=== PATIENT | male | born 1955 | race Caucasian/White ===

== ENCOUNTER → 2023-01-24 14:40 | Outpatient (BNV) | payer OTHER, SELFPAY | PROVIDERS: PCP Nurse Practitioner Family; Visit Provider Internal Medicine | DX: C64.9 Malignant neoplasm of unspecified kidney, except renal pelvis (principal) | CPT/HCPCS: 99213; 99214; 99215; G2211 ==

== ENCOUNTER 2023-02-02 10:04 | Day surgery (SDC) | payer OTHER, SELFPAY ==
--- NOTE | ~2023-02-02 | CT_ITS ---
PROCEDURE: CT GUIDED BIOPSY, BONE CLINICAL INFORMATION: Mass in the anterior chest wall along the left lateral aspect of the upper manubrium along the inferior aspect to the left first rib COMPARISON: Previous CT scan dated 01/26/2023 at an outside institution TECHNIQUE: The skin was prepped and draped in usual fashion. After preliminary scans of the chest the mass was localized. 1% Xylocaine was used for local anesthetic. A 18-gauge by 11 cm Temno core biopsy needle was then placed under CT guidance. The position of the needle was confirmed and 4 core biopsy specimens were obtained. The specimens were placed in formalin solution. The needle was removed and manual pressure applied. CT/CT biopsy bone deep IMPRESSION: CT-guided biopsy of the mass along the left lateral aspect of the manubrium adjacent to the anterior aspect of the left first rib.
[2023-02-02 10:37] LABS: INTERNATIONAL NORM RATIO 1.1 (0.9-1.1); Prothrombin Time 13.4 SEC (11.1-13.3)
[2023-02-02 10:40] LABS: Partial Thromboplastin Time 32.8 SEC (26.0-36.4)
[2023-02-02 10:47] VITALS: BMI 29.3
[2023-02-02 12:50] VITALS: BP 144/69; PULSE 53; RESP 16; TEMP 36.4; O2SAT 95
[2023-02-02] MEDS: Lidocaine HCl 1 % 20 ML VIAL 10 ML SUBCUT (13:00)
[2023-02-02 13:05] VITALS: BP 146/64; PULSE 54; RESP 16; O2SAT 97
[2023-02-02 13:20] VITALS: BP 155/73; PULSE 55; RESP 16; O2SAT 97
[2023-02-02 13:35] VITALS: BP 149/64; PULSE 54; RESP 16; O2SAT 97
[2023-02-02 13:47] VITALS: BP 154/70; PULSE 56; RESP 16; TEMP 36.6; O2SAT 97
== END 2023-02-02 14:19 | disposition home or self-care (01) ==
PROVIDERS: Radiology Vascular & Interventional Radiology; PCP Nurse Practitioner Family; Visit Provider Internal Medicine
DX: C79.51 Secondary malignant neoplasm of bone (principal); C64.9 Malignant neoplasm of unspecified kidney, except renal pelvis; R53.1 Weakness; R91.8 Other nonspecific abnormal finding of lung field; R42 Dizziness and giddiness; I25.2 Old myocardial infarction; I25.10 Atherosclerotic heart disease of native coronary artery without angina pectoris; Z95.5 Presence of coronary angioplasty implant and graft; I10 Essential (primary) hypertension; Z79.82 Long term (current) use of aspirin; Z79.899 Other long term (current) drug therapy; Z86.73 Personal history of transient ischemic attack (TIA), and cerebral infarction without residual deficits; Z88.6 Allergy status to analgesic agent
CPT/HCPCS: 20225; 36415; 77012; 85610; 85730; 88307; 88311; 88341; 88342; 99152; J2250; J3010

== ENCOUNTER → 2023-02-02 12:08 | Outpatient (BNV) | payer OTHER, SELFPAY | PROVIDERS: PCP Nurse Practitioner Family; Visit Provider Radiology Vascular & Interventional Radiology | DX: C64.9 Malignant neoplasm of unspecified kidney, except renal pelvis (principal) | CPT/HCPCS: 20225; 77012 ==

== ENCOUNTER 2023-05-29 13:55 | Outpatient (REF) | payer OTHER, SELFPAY ==
--- NOTE | ~2023-05-29 | XR_ITS ---
EXAMINATION: XR HIP, LEFT CLINICAL INFORMATION: Question stability. COMPARISON: None available. TECHNIQUE: Two views of the left hip. Single view of the pelvis FINDINGS: No acute visible fracture or dislocation. Degenerative changes of the bilateral femoral acetabular joints. Degenerative arthropathy of the lumbosacral spine. Joint space alignment are otherwise maintained. Soft tissues are unremarkable. Atherosclerotic calcifications are noted. Surgical clips overlying the scrotum. XR/XR hip LT w PEL1V IMPRESSION: 1. No acute visible fracture or dislocation. 2. Degenerative changes of the bilateral femoral acetabular joints.
== END 2023-05-29 13:56 | disposition home or self-care (01) ==
LOC: HO.XRAY 13:55
PROVIDERS: PCP Nurse Practitioner Family; Visit Provider Internal Medicine
DX: C64.9 Malignant neoplasm of unspecified kidney, except renal pelvis (principal); C79.51 Secondary malignant neoplasm of bone
CPT/HCPCS: 73502

== ENCOUNTER 2023-06-08 10:28 | Outpatient (AMB) | payer OTHER, SELFPAY ==
--- NOTE | 2023-06-08 10:36 | MHC.OFFVIS ---
Intake Vital Signs 06/08/23 10:38 Height 5 ft 10 in Weight 190 lb BMI 27.3 BP 140/66 H Blood Pressure Location Lt brachial Position Sitting Pulse 56 Intake Visit Reasons: Esophageal mass Intake Note: Patient new consult for Esophageal mass. Patient denies any GI issues. Ditcher Required: No Accompanied by: Spouse Allergies morphine Allergy (Severe, Verified 06/08/23 10:36) Unknown Medication List - Last Reconciled 06/08/23 by Nilda Qureshi MD amiodarone 200 mg PO DAILY amlodipine 10 mg PO DAILY aspirin 81 mg PO DAILY atorvastatin 80 mg PO BEDTIME carvedilol 25 mg PO BID lenvatinib 20 mg PO DAILY levothyroxine (Synthroid) 25 mcg PO DAILY prochlorperazine maleate 10 mg PO Q6H PRN valsartan 80 mg PO DAILY HPI Esophageal mass HPI Details Initial GI clinic visit for this 67 [address] Solis for evaluation of a persistent esophageal mass LABS IN [facility] : Reviewed IMAGING STUDIES: 05/23/[address] scan report was reviewed: howed interval decrease in activity and size of previously visualized pulmonary masses, resolution of a few of previously seen nodules. Intensely avid osseous lesions at the left 1st rib, manubrium and left femur similar to prior. No significant change in intensely avid lesion involving distal esophagus and gastric cardia. ENDOSCOPIC STUDIES: None in [facility] TODAY'S VISIT: Patient denies symptoms of heartburn, dysphagia, nausea, vomiting, change in appetite. Notes an increase in his wt by a few lbs since he is not getting a lot of exercise Denies recent change in bowel habits, constipation, diarrhea, black stools or rectal bleeding. Patient has CAD and had an angiography with placement of 2 stents in 05/2022 Pt denies a hx of loud snoring or sleep apnea Denies problems with anesthesia in the past. Pt denies smoking and takes a beer every day Denies being on chronic anticoagulation. Patient denies known family history of colon polyps, colon cancer or other GI malignancies. Sister of lung cancer from smoking Pt worked at [employer] and is retired and lives with his . Pt has 3 kids and 2 GD PAST EGD/COLONOSCOPY: Never had an EGD or a colonoscopy in the past PAST GI HISTORY BY REVIEW OF MEDICAL RECORDS: Diagnosis: Metastatic kidney cancer He has a complicated past medical history. He initially suffered a CVA in 2014 for which he was treated in [place]. In 2019 he had defibrillator placed at [facility] he is rather vague about the circumstances around this. In May 2022 he had stent placement for coronary artery disease and he was started on anti-platelet therapy. In June 2022 he was admitted to [facility] for hypertensive emergency. During that time he was told of a right kidney mass. He underwent CT abdomen/pelvis with IV contrast at [facility] on 12/07/2022 which revealed a large heterogenous mass in lower pole of right kidney measuring 8.8 cm, highly suspicious for renal cell carcinoma. Second enhancing lesion at upper pole of right kidney measuring up to 2.2 cm consistent with local metastatic disease. 1.6 cm indeterminate right adrenal lesion. Multiple subcentimeter hypodensities in the liver that are too small to characterize. 2.3 cm hypodensity within the pancreatic head which could represent metastatic disease versus a 2nd primary. Multiple pulmonary nodules measuring up to 1 cm most consistent with metastatic disease, recommend CT chest with contrast for further evaluation. He is followed by Dr. Whittington at [facility]. PET-CT performed at [facility] on 01/19/2023 revealed multiple pulmonary nodules with FDG avidity, heterogenous mass at right lower renal bone measuring 8.5 cm with SUV 10.4 in a separate nodule from the upper pole of the right kidney also hypermetabolic with SUV 8.3 and measuring 3.2 cm in diameter, hypermetabolic activity in renal vein extending into IVC SUV 5.8 suspicious for vascular invasion of tumor. Bilobed mass like soft tissue density with hypermetabolic activity in distal esophagus, increased activity in posterior aspect of left 9th rib, hypermetabolic lesion at the junction of left 1st rib and manubrium consistent with metastasis. 1. This is a 67-year-old male who was diagnosed incidentally with kidney cancer in June 2022. He had biopsy of sternal mass 02/03/23 which revealed metastatic renal cell carcinoma. IHC was reactive with CD10 and PAX8, negative for CK 7 and CK 20. For his high risk, advanced stage IV renal cell carcinoma he started lenvatinib 20 mg once daily along with pembrolizumab 200 mg IV every 3 weeks in the first-line setting (phase III clinical trial-[facility]) from 02/13/23. PET scan performed 05/23/2023 showed interval decrease in activity and size of previously visualized pulmonary masses, resolution of a few of previously seen nodules. Intensely avid osseous lesions at the left 1st rib, manubrium and left femur similar to prior. No significant change in intensely avid lesion involving distal esophagus and gastric cardia. Previously SUV was 9.1, currently 6.6. 2. 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 He started on denosumab 120 mg subQ once a month. 3. He has an extensive cardiac history with placement of defibrillator in 2018 and stents placed in May 2022. He is followed by Dr. Whittington at [facility]. I discussed PET scan findings with patient and his . Because of persistent mass with SUV uptake seen in his distal esophagus/gastric cardia, he is being referred to Gastroenterology for endoscopy and biopsy. It is unusual to have kidney cancer metastasize to stomach or esophagus. X-ray of left hip has been ordered to ensure stability of joint, to make sure he does not have an impending fracture. Follow-up in 4 week. [facility] Medical History (Updated 06/12/23 @ 10:58 by Petra Hameed RN) Cardiac defibrillator in place History of heart attack (~06/14/22) Hypertension Surgical History (Updated 06/08/23 @ 11:03 by Karmen Farias) History of surgery on arm Hx of knee surgery Hx of shoulder surgery Family History Mother Alzheimer disease Sister Lung cancer Social History Household Members: Spouse and Children Housing: Apartment Patient Tobacco Use Status: Never used Tobacco Advance Directives: No Advance Directives Information Provided: Yes service: Yes ([employer]) Current occupational status: retired Review of Systems Const Denies fever(s), Denies headache(s) and Denies weight loss Eyes Denies eye discharge and Denies irritation ENT Reports Normal hearing present, Denies dysphagia, Denies dizziness and Denies headache(s) Card Denies chest pain, Denies leg edema and Denies dyspnea on exertion Resp Denies cough, Denies dyspnea on exertion and Denies wheezing GI Denies abdominal pain, Denies change in bowel habits, Denies dysphagia and Denies heartburn Denies dysuria and Reports urinary frequency Musc Denies back pain and Denies arthralgias Skin/Breast Denies pruritus, Denies rash and Denies jaundice Neuro Reports Normal hearing present, Denies Abnormal speech present, Denies dizziness, Denies headache(s) and Denies seizure-like activity Psych Denies anxiety, Denies depression and Denies panic attacks Endo Denies cold intolerance, Denies flushing and Denies heat intolerance Arnoldo/Lymph Denies easy bleeding and Denies easy bruising Aller/Immun Denies wheezing Physical Exam Vital Signs: Last Vital Signs Pulse 56 06/08/23 10:38 BP 140/66 H 06/08/23 10:38 BMI result Body Mass Index 27.3 Const General: healthy appearing and no acute distress Nutritional Appearance: overweight Orientation/consciousness: patient oriented x3 Limitations: no limitations HEENT Head: Yes normal to inspection Ears: hearing grossly normal bilaterally Eyes Sclerae: sclerae normal Pupils: Equal, round and reactive pupils present Neck Neck: Yes normal visual inspection Chest Chest palpation & inspection: normal inspection of the chest Resp Effort & Inspection: normal respiratory effort Auscultation: clear to auscultation bilaterally Cardio Palpation: normal PMI Rate: regular rate Rhythm: regular rhythm Heart sounds: S1 normal heart sound present, S2 normal heart sound present and no murmurs GI Palpation (GI): Soft to palpation, nontender and No hepatosplenomegaly present Auscultation: normal bowel sounds Rectal Exam - Male: Yes deferred Skin General skin exam: no rashes or lesions noted Neuro General: patient oriented x3, gait normal and moves all extremities Cranial nerves: Yes Equal, round and reactive pupils present and Yes Normal hearing present Speech: No Abnormal speech present Psych Appearance: grossly normal Mental Status: mental status grossly normal Assessment & Plan Assessment & Plan (1) Esophageal mass: Code(s): K22.89 - Other specified disease of esophagus Plan Unfortunate 67 year old male with metastatic renal cell cancer referred to GI because of persistent mass with SUV uptake seen in his distal esophagus/gastric cardia on recent PET-CT scan, Patient denies symptoms of heartburn, dysphagia, nausea, vomiting, change in appetite. Notes an increase in his wt by a few lbs since he is not getting a lot of exercise Pt was advised to schedule further evaluation with an urgent upper endoscopy. EGD procedure and potential complications including bleeding, perforation, reaction to anesthetic and aspiration were reviewed with the patient. EGD scheduled on 06/12/2023 Coding Level of Care Code New Pt Level 4 (07939) Diagnoses Esophageal mass K22.89 Time Spent (min) 26
[2023-06-08 10:38] VITALS: BP 140/66; PULSE 56; BMI 27.3
== END 2023-06-08 16:48 | disposition home or self-care (01) ==
PROVIDERS: PCP Nurse Practitioner Family; Visit Provider Internal Medicine Gastroenterology
DX: K22.89 Other specified disease of esophagus (principal)
CPT/HCPCS: 99204; 99214

== ENCOUNTER → 2023-06-08 10:28 | Outpatient (BNVA) | payer OTHER, SELFPAY | PROVIDERS: PCP Nurse Practitioner Family; Visit Provider Internal Medicine Gastroenterology | DX: K22.89 Other specified disease of esophagus (principal) | CPT/HCPCS: 99202 ==

== ENCOUNTER 2023-06-12 13:47 | Day surgery (SDC) | payer OTHER, SELFPAY ==
[2023-06-12 13:56] VITALS: BP 142/69; PULSE 51; RESP 16; TEMP 36.6; O2SAT 98; BMI 25.8
--- NOTE | 2023-06-12 16:35 | P.OP_ITS ---
Operative Note Operative Note Date of Service: 06/12/23 Narrative: FLEXIBLE TRANSORAL UPPER GASTROINTESTINAL ENDOSCOPY WITH BIOPSIES Pre-op diagnosis: metastatic renal cell cancer with mass in the lower esophagus and gastric cardia on PET scan Post-op diagnosis: same Endoscopist:? Nilda Qureshi MD Anesthesia:?MAC Consent: Indications for the procedure and potential complications of bleeding, perforation, reaction to medications and missed diagnosis were discussed with the patient and informed consent was obtained. Instrument: Olympus GIF H 190 mid size upper endoscope Monitoring: Vital signs and clinical assessment, continuous EKG monitoring, Pulse oximetry, Carbon Dioxide monitoring and blood pressure monitoring were done throughout the procedure. Procedure: The patient was placed in the left lateral decubitis position and pre-procedure medications were administered and a bite block was placed. The endoscope was inserted into the mouth and advanced under direct vision to the third part of duodenum. A careful inspection was made as the upper endoscope was withdrawn including a retroflexed examination of the proximal stomach; Findings and interventions are described below. Findings: Larynx: Normal Esophagus: GE junction at 40 cms. Extrinsic compression in distal esophagus without a clear mass. No esophagitis or Tomas's. Stomach: Mild gastric erythema. Biopsies were obtained. Retroflexed examination of the cardia showed a 5 cms mass in the cardia exte nding towards the gastric fundus with normal overlying mucosa (suggestive of exterinsic compression) - biopsies were obtained. Grade 2 flap valve on retroflexed examination of the cardia. Duodenum: Normal bulb and descending duodenum Intervention: Biopsies as noted above Impression and Post Procedure Diagnosis: Endoscopy Findings: ESOPHAGUS: Extrinsic compression in distal esophagus without a clear mass. STOMACH: Retroflexed examination of the cardia showed a 5 cms mass in the cardia extending towards the gastric fundus with normal overlying mucosa (suggestive of exterinsic compression by metastatic renal cancer versus GIST) - biopsies were obtained. Plan: Await pathology results If biopsies are normal, pt can be referred for an EUS guided biopsy of the gastric mass. Patient has an appointment on 07/14/23 in the GI Clinic with Nilda Qureshi M.D. Above findings were reviewed with the patient BIOPSIES SHOWED: A. Stomach, cardiac mass, biopsy: Cardiac mucosa with moderate chronic, focally active, inflammation; no Helicobacter organisms seen; negative for malignancy or mass-forming lesion; multiple additional levels examined. B. Stomach, antrum, biopsy: Antral-type mucosa with mild chronic inactive inflammation; no Helicobacter organisms seen
--- NOTE | 2023-06-12 16:35 | MHC.SHP ---
Pre-Procedural Eval Section A Date of Service: 06/12/23 The patient is an INPATIENT: No Changes since office visit: Yes Patient answered all questions; No Cold of Flu in the past 2 weeks, No New Medical Problems and No Changes in Medication The History & Physical has been completed within 30 days and I have reviewed it.: Yes Section B Chief Complaint: Other specified disease of esophagus Allergies: Allergies Allergy/AdvReac Type Severity Reaction Status Date / Time morphine Allergy Severe Unknown Verified 06/08/23 10:36 Plan Diagnosis/Plan: Unchanged I have reviewed the history and physical and performed a pertinent physical examination on my patient. No changes have occurred unless specified. Time Spent With Patient Time: Total time managing care of this patient today ____ minutes.
[2023-06-12 17:05] VITALS: BP 106/61; PULSE 51; RESP 16; TEMP 36.6; O2SAT 99
[2023-06-12 17:20] VITALS: BP 122/70; PULSE 53; RESP 19; O2SAT 97
[2023-06-12 17:35] VITALS: BP 126/70; PULSE 58; RESP 15; TEMP 36.2; O2SAT 98
== END 2023-06-12 17:43 | disposition home or self-care (01) ==
PROVIDERS: PCP Nurse Practitioner Family; Visit Provider Internal Medicine Gastroenterology
PROC: 0DJ08ZZ Inspection of Upper Intestinal Tract, Via Natural or Artificial Opening Endoscopic (ICD-10-PCS; CPT 43235; principal; 2023-06-12 15:30)
DX: K22.89 Other specified disease of esophagus (principal); K29.70 Gastritis, unspecified, without bleeding; C64.9 Malignant neoplasm of unspecified kidney, except renal pelvis; Z95.810 Presence of automatic (implantable) cardiac defibrillator; Z79.82 Long term (current) use of aspirin; Z79.02 Long term (current) use of antithrombotics/antiplatelets; Z79.899 Other long term (current) drug therapy
CPT/HCPCS: 43239; 88305; 88342; J1100; J2704

== ENCOUNTER → 2023-06-12 13:47 | Outpatient (BNV) | payer OTHER, SELFPAY | PROVIDERS: PCP Nurse Practitioner Family; Visit Provider Internal Medicine Gastroenterology | DX: K31.9 Disease of stomach and duodenum, unspecified (principal); C64.9 Malignant neoplasm of unspecified kidney, except renal pelvis | CPT/HCPCS: 43239 ==

== ENCOUNTER → 2023-07-14 07:11 | Outpatient (BNVA) | payer OTHER, SELFPAY | PROVIDERS: PCP Nurse Practitioner Family; Visit Provider Internal Medicine Gastroenterology ==

== ENCOUNTER 2023-08-07 14:39 | Outpatient (REF) | payer OTHER, SELFPAY ==
--- NOTE | ~2023-08-07 | US_ITS ---
EXAMINATION: US ABDOMEN COMPLETE CLINICAL INFORMATION: Elevated LFTs Known metastatic renal cancer. COMPARISON: None available. TECHNIQUE: Real-time imaging of the abdominal viscera. FINDINGS: PANCREAS: Normal head and body, tail is obscured by bowel gas ABDOMINAL AORTA: The proximal, mid, and distal segments are normal in caliber. Atherosclerotic plaque is seen within the abdominal aorta. INFERIOR VENA CAVA: Visualized portions are normal. LIVER: The liver is normal in size. The liver contour is normal. The hepatic parenchyma is slightly heterogeneous without a focal abnormality. There is no intrahepatic biliary duct dilatation seen. GALLBLADDER: The gallbladder is physiologically distended without evidence of stones, sludge, polyps, wall thickening or pericholecystic fluid. Punctate nonmobile calcification is seen within the posterior wall the gallbladder. COMMON BILE DUCT: Normal in caliber measuring 0.6 cm in diameter. RIGHT KIDNEY: 6.8 x 5.5 x 5.5 cm heterogeneous mass with minimal vascular flow is seen in the lower pole. No hydronephrosis. No renal calculi or focal parenchymal lesions. The kidney measures 14.2 cm in maximum dimension. LEFT KIDNEY: Normal. No hydronephrosis. No renal calculi or focal parenchymal lesions. The kidney measures 12.0 cm in maximum dimension. Mild pelvic renal fullness is noted. SPLEEN: Normal. The spleen measures 10.6 cm in maximum dimension. FREE FLUID: None. US/US abdomen complete IMPRESSION: 1. 6.8 cm heterogeneous mass with minimal vascular flow is seen in the lower pole of the right kidney. 2. Atherosclerosis. 3. Heterogeneous hepatic parenchyma without a focal abnormality.
== END 2023-08-07 14:40 | disposition home or self-care (01) ==
LOC: HO.US 14:39
PROVIDERS: Visit Provider Internal Medicine
DX: C64.9 Malignant neoplasm of unspecified kidney, except renal pelvis (principal)
CPT/HCPCS: 76700

== ENCOUNTER 2023-09-06 16:03 | Outpatient (REF) | payer OTHER, SELFPAY | END 2023-09-06 16:04 | disposition home or self-care (01) | LOC: HO.LAB 16:03 | PROVIDERS: PCP Nurse Practitioner Family; Visit Provider Internal Medicine | DX: Z13.89 Encounter for screening for other disorder (principal) ==

== ENCOUNTER → 2023-09-19 13:22 | Outpatient (BNVA) | payer OTHER, SELFPAY | PROVIDERS: PCP Nurse Practitioner Family; Referring Provider Internal Medicine; Visit Provider Internal Medicine Hypertension Specialist | DX: C64.9 Malignant neoplasm of unspecified kidney, except renal pelvis (principal); E87.1 Hypo-osmolality and hyponatremia; E83.52 Hypercalcemia | CPT/HCPCS: 99202 ==

== ENCOUNTER → 2023-10-26 08:14 | Outpatient (BNVA) | payer OTHER, SELFPAY | PROVIDERS: PCP Nurse Practitioner Family; Visit Provider Internal Medicine Gastroenterology ==

== ENCOUNTER 2023-11-23 15:47 | Outpatient (REF) | payer OTHER, SELFPAY ==
--- NOTE | ~2023-11-23 | CT_ITS ---
EXAMINATION: CT CHEST WITH CONTRAST CLINICAL INFORMATION: Metastatic kidney cancer; question esophageal mass. COMPARISON: None available. TECHNIQUE: Multidetector volumetric CT imaging of the chest was obtained after the administration of 65 mL of Omnipaque 350 intravenous contrast without immediate adverse reactions. Axial MIP volume rendering provided. Sagittal and coronal reformatted images were obtained. This CT examination was performed using dose optimization techniques as appropriate, variously including the following: *Automated exposure control *Adjustment of mA and/or kV according to patient size (this includes techniques or standardized protocols for targeted exams where dose is matched to indication/reason for exam; i.e. extremities or head) *Use of iterative reconstruction technique DLP: 166 mGy-cm FINDINGS: DYE AND CHEMICAL COORDINATOR: The lungs are symmetrically well-expanded and grossly clear. An AICD is noted. LUNGS: There are several bilateral scattered benign, calcified granulomas. Anteriorly within the right middle lobe (5:111), a 3 mm noncalcified nodule is seen. At the lateral right base (5:142), a 9 mm noncalcified nodule is seen. At the posteromedial right base (5:170), a 7 mm noncalcified nodule is seen. No mass, infiltrate or groundglass opacity is seen. There is no generalized increase in peripheral interlobular septal markings. No bleb or bullous formation is seen. There is no generalized small airway thickening. The central airways appear patent. MEDIASTINUM: The mediastinum is normal. No thoracic esophageal lesion is noted. At the hiatus towards the gastroesophageal junction, there is focal wall thickening (3:56 and 9:53-5). PLEURA: There is no pleural effusion. No pleural mass or thickening. AXILLA: No lymphadenopathy. There is mild gynecomastia, left greater than right. UPPER ABDOMEN: The adrenal glands are unremarkable. OSSEOUS STRUCTURES: There is multi-level cervicothoracic degenerative disc disease and endplate arthropathy. No acute or aggressive osseous finding is noted. CT/CT chest w IV con IMPRESSION: 1. Wall thickening is suspected of the gastroesophageal junction. This could be more fully evaluated with an upper GI series or upper endoscopy, if clinically indicated. 2. There are nonspecific, noncalcified right lung nodules, the largest at the lateral right base measuring 9 mm. According to the UPDATED 2017 Fleischner Society recommendations, the advised follow-up imaging for multiple solid nodules, the largest measuring 6 mm or greater, is: LOW RISK PATIENT: CT at 3-6 months, then consider CT at 18-24 months. HIGH RISK PATIENT: CT at 3-6 months, then at 18-24 months. 3. No mass, infiltrate or groundglass opacity is seen. 4. There is no thoracic lymphadenopathy or pleural effusion. 5. There are degenerative changes of the cervicothoracic spine. No acute or aggressive osseous abnormality is seen. 6. There is mild gynecomastia. Fleischner guidelines were followed.
[2023-11-23] MEDS: iohexoL 350 MG/ML 100 ML INFUS..BTL IV (16:12)
== END 2023-11-23 15:48 | disposition home or self-care (01) ==
LOC: HO.CT 15:47
PROVIDERS: PCP Nurse Practitioner Family; Visit Provider Internal Medicine
DX: K22.89 Other specified disease of esophagus (principal); C64.9 Malignant neoplasm of unspecified kidney, except renal pelvis
CPT/HCPCS: 71260; Q9967

== ENCOUNTER 2024-05-08 08:38 | Outpatient (REF) | payer OTHER, SELFPAY ==
--- NOTE | ~2024-05-08 | US_ITS ---
EXAMINATION: US ABDOMEN LIMITED CLINICAL INFORMATION: Abnormal liver enzymes. Rule out metastasis. COMPARISON: CT scan from January 26, 2023] ultrasound from August 07, 2023 TECHNIQUE: Real-time imaging of the right upper quadrant abdominal viscera. FINDINGS: PANCREAS: There is hypoechoic mass in the pancreatic head/body, measured 0.9 x 0.9 x 0.8 cm, not seen on the previous study, need to be evaluated by CT scan. LIVER: Normal. The liver is normal in size. The liver contour is normal. Parenchymal echogenicity is normal. No focal hepatic lesion. There is no intrahepatic biliary duct dilatation seen. GALLBLADDER: There is calcification in the gallbladder wall possibly very small calcified polyp, measured 0.2 cm. There are no evidence of stones or sludge. Gallbladder wall measures 0.2 cm. Sonographic Mchugh sign is reported negative. There is no pericholecystic fluid collection . COMMON BILE DUCT: Normal in caliber measuring 0.5 cm in diameter. RIGHT KIDNEY: Right kidney is abnormal with known mass in the lower pole measured 6.3 x 4.5 x 5.8 cm. No hydronephrosis or renal calculi. The kidney measures 12.2 cm in maximum dimension. FREE FLUID: None. US/US abdomen limited IMPRESSION: 1. Hypoechoic mass in the pancreatic head/body, need to be evaluated by CT scan. 2. Small calcified polyp in the gallbladder wall. 3. Known mass in the lower pole of the right kidney. Electronically signed by: Balwinder Turner MD 05/08/2024 03:55 PM [facility]
== END 2024-05-08 08:39 | disposition home or self-care (01) ==
LOC: HO.US 08:38
PROVIDERS: PCP Nurse Practitioner Family; Visit Provider Internal Medicine
DX: C64.9 Malignant neoplasm of unspecified kidney, except renal pelvis (principal)
CPT/HCPCS: 76705